=== PATIENT | female | born 1980 | race Caucasian/White ===

== ENCOUNTER 2020-07-14 12:47 | Emergency (ER) | payer MEDICAID, SELFPAY ==
[~2020-07-14] VITALS: Ht 160 cm; Wt 65.8 kg
[2020-07-14 12:51] VITALS: Ht 160 cm; Wt 65.8 kg
[2020-07-14 13:40] VITALS: BP 167/92
== END 2020-07-14 13:40 | disposition home or self-care (01) ==
LOC: ED 12:47
DX: U07.1 COVID-19 (principal); N39.0 Urinary tract infection, site not specified; E11.9 Type 2 diabetes mellitus without complications
CPT/HCPCS: Q0162; U0003